=== PATIENT | male | born 1965 | race Caucasian/White ===

== ENCOUNTER 2019-04-15 07:08 | Day surgery (SDC) | payer OTHER, SELFPAY ==
[2019-04-15] MEDS: Lactated Ringers 1,000 ML 80 ML IV (07:55)
[2019-04-15] MEDS: ceFAZolin 2 GM/50 ML BAG IVPB (09:18)
[2019-04-15] MEDS: Bupivacaine LIPOSOME/PF 133 MG/10 ML VIAL IJ (09:25)
[2019-04-15] MEDS: Bupivacaine 0.25% Pres-Free 30 ML VIAL ×2 (09:25→10:45)
--- NOTE | 2019-04-15 10:53 | W.PM.OP ---
Date of service: 04/15/19 Time of Service: 10:53 Operative Note Operative Note DATE OF PROCEDURE: 04/15/19 PRE-OP DIAGNOSIS: lg left inguinal hernia undesired fertility POST-OP DIAGNOSIS: same PROCEDURE: left open hernia repair and vsectomy SURGEON: Margarette More STATE INSPECTOR: Lashon Howell ANESTHESIA: JENNIFER ESTIMATED BLOOD LOSS: 5 PATHOLOGY: none sent COMPLICATIONS: None Patient was transported to: same day Patient's condition: stable Procedure Description: .dict
--- NOTE | 2019-04-15 10:59 | DI.RAD_ITS ---
EXAM: XR PELVIS AP INDICATION: INCORRECT COUNT. COMPARISON: No exams were available for comparison TECHNIQUE: 2D digital imaging was performed. Portable supine FINDINGS: No radiopaque foreign bodies are seen. Surgical clips are seen in the left inguinal region. There i s no bowel dilatation. IMPRESSION: No radiopaque foreign body in the field of view.
[2019-04-15 11:08] VITALS: BP 106/83; PULSE 61; RESP 15; TEMP 36.7; O2SAT 96
[2019-04-15 11:13] VITALS: BP 115/78; PULSE 63; RESP 14; TEMP 36.7; O2SAT 97
[2019-04-15 11:18] VITALS: BP 120/81; PULSE 59; RESP 12; TEMP 36.7; O2SAT 96
--- NOTE | 2019-04-15 11:21 | W.PM.DSUDISC ---
Discharge Plan Disposition Patient Disposition: HOME Condition: Good Discharge Details Reason For Visit: left inguinal hernia repair w/ mesh and vasectomy Attending Provider: Margarette More Primary Care Provider: Unknown,Unknown Home Meds and New Rx's Prescriptions: New ibuprofen 600 mg tablet 600 mg PO Q6H PRN (Reason: pain) Qty: 90 RF: 2 tramadol 50 mg tablet 50 mg PO Q6H PRN (Reason: pain) Qty: 10 RF: 0 Continued Remicade 100 mg recon soln 1,000 mg IV Q6W RF: 0 Discharge Instructions Additional Instructions: miko More HERNIA REPAIR ? POSTOPERATIVE INSTRUCTIONS ? The MESH PLUG surgery for hernia repair allows the patient to return to normal activities at an early date. Patients who have this type of surgery can usually be expected to return to work within two weeks and have minimal amounts of discomfort. ? ACTIVITY: The day of surgery should be spent resting. However, you can be up for short periods of time, I.E., going to the bathroom or kitchen. Avoid lifting or straining. On the day following surgery, you can be up and about as desired. ? LIFTING: Restrict your lifting to no more than five (5) pounds for the first week following surgery. ? DIET: There are no dietary restrictions following surgery. However, you may want to start with small amounts of liquids to avoid nausea the day of surgery. ? INCISION CARE: A dressing covers your incision. After 24 hours you may shower and apply a clean dressing over the strips of tape. The dressing may be replaced as necessary. An ice bag may be applied to the incision for 72 hours following surgery. ? SIGNS OF INFECTION: It is not unusual to have some black and blue discoloration of the skin around the incision. It will slowly disappear. If you have any increased redness, drainage, fever (above 100 degrees), please contact your doctor for an examination. ? DISCOMFORT: You may expect to have some mild discomfort at the incision sight. If severe pain develops you should contact your doctor for further instructions. ? URINATION: Patients who have surgery occasionally have problems urinating. If you experience problems and are not able to urinate within 6 hours following your surgery, please call your doctor immediately or go to your nearest Emergency Room for evaluation. ? DRIVING: NO driving for five (5) days after surgery ? MEDICATIONS: You have been given a prescription for pain. If you are taking pain medication, follow the instructions on the label and do not drive. Some patients have conditions that require antibiotics, please follow the instructions on the label and take all of the antibiotics. Pain medications can make you very constipated. Take a dose of MOM the day after your surgery. Make sure you are moving your bowels daily. If not, take Miralax, milk of magnesia or magnesium citrate. ? REPORT: Unusual swelling, severe pain, unresolved nausea, signs of infection, or difficulty in urination to your surgeon. Follow up in clinic with Dr. More in 1-2 weeks. Please call for appointment: [phone] Activity:: no lifting over 5#'s or strenuousactivity x 2 wks. no driving x 5 days Remove Dressings/Wound Care:: 24 hours Shower/Bathe:: 24 hours Diet:: Normal Diet Discharge Orders Discharge Orders: Discharge Order (Routine); Ordered 04/15/19 Ordered By: Margarette More DS: Diagnosis Discharge Diagnosis (1) Left inguinal hernia: Status: Acute (2) S/P vasectomy: Status: Acute
[2019-04-15 11:33] VITALS: BP 129/89; PULSE 59; RESP 12; TEMP 36.7; O2SAT 97
--- NOTE | 2019-04-15 12:24 | ROE_ITS ---
DATE OF PROCEDURE: April 15, 2019 PREOPERATIVE DIAGNOSIS: Left inguinal hernia and undesired fertility. POSTOPERATIVE DIAGNOSIS: Same. SURGEON: Margarette More D.O. ANESTHESIA: General. ESTIMATED BLOOD LOSS: 10 cc's CONDITION: The patient tolerated the procedure well without complication. INDICATIONS FOR PROCEDURE: Mr. Medeiros is a 54-year-old male with a large left inguinal hernia and undesired fertility and is here today for a left inguinal hernia repair with mesh and vasectomy with Dr. Nguyen. Informed consent was obtained explaining risks and benefits of the procedure, including but not limited to bleeding, infection, pneumonia, blood clots, possible damage to bowel, bladder or blood vessels, chronic pain, chronic numbness, hematomas, sperm granulomas and recannulization. Also the patient understands that he is not infertile until we get a semen specimen. The patient was seen and an exam was performed. He was marked in preop. PROCEDURE: The patient was brought to the operative suite and placed in the supine position. Anesthesia is administered per the Department of Anesthesia. TAP block was done per Anesthesia. The patient was prepped and draped in usual sterile fashion using a ChloraPrep and Betadine scrub solution. He did receive preop antibiotics. Time-out was performed. We are doing the left inguinal hernia and left vasectomy. The external ring was isolated and 0.25% Marcaine is used for a local field block. A #15 blade is used to make an incision. Electrocautery was used to provide hemostasis and dissect down to the fascia. The external oblique is obliterated. There is a large lipoma and this is excised using electrocautery. The cord structures are encountered and these are elevated. There is a very large direct sac that is on the cord. This is all teased down off the cord with a combination of blunt dissection and energy. Because of the size of the sac it is opened up; it does contain omentum and colon. The omentum is adhered to the sac and this is taken down. There is again a significant amount of redundant omentum and this is excised using a LigaSure. The colon is pink and healthy and this is returned to the abdominal cavity. A high ligation is done on the sac and a portion of the sac is ligated as well. The sac remnant is then returned to the abdominal cavity. A large plug is placed through the external ring. This is then over-sewn using #2-0 Vicryl. The vasectomy is tended to next. The vas is then dissected off the cord blood vessels and isolated and clips are placed proximally and distall. A half-inch segment of vas is removed. The ends are cauterized. The LigaSure is also used to cauterize the vas as well. There is no bleeding noted. The patch is then sewn into the pubic tubercle and around the cord and buried underneath what was left of the external oblique. Superiorly or medially there was some external oblique left to sew the patch to. Inferiorly and laterally there was not any really good fascia left. The wound is then irrigated. The testicle is in good position. There is no tugging/tension on the cord structures. There is no bleeding or hematoma. The redundant tissue is then closed over the hernia repair using a #2-0 Vicryl and the deep subcutaneous is closed with #2-0 Vicryl. The skin is closed with #4-0 Monocryl in a running subcuticular fashion and skin glue is applied. The right side vasectomy is then carried out by Dr. Nguyen. Please see the separate operative note for this procedure. Sterile compression dressings are applied. The patient tolerated the procedure well without complication and transferred to the recovery room in stable condition.
[2019-04-15 12:38] VITALS: BP 130/86; PULSE 61; RESP 18; TEMP 36.1; O2SAT 97
--- NOTE | 2019-04-15 14:36 | ROE_ITS ---
DATE OF PROCEDURE: April 15, 2019 PREOPERATIVE DIAGNOSIS: Elective sterilization. POSTOPERATIVE DIAGNOSIS: Same. PROCEDURE: Vasectomy. SURGEON: Marquise Nguyen M.D. ANESTHESIA: General. COMPLICATIONS: None. ESTIMATED BLOOD LOSS: Minimal. HISTORY: This is a 54-year-old gentleman who has a symptomatic left inguinal hernia. He is due for an inguinal hernia repair. He is asking if a vasectomy could be performed at the same time. We counseled the patient that vasectomy should be considered permanent. He and his partner are sure that they do not want additional pregnancies. Both he and his partner are agreeable to the vasectomy . PROCEDURE: The patient was seen in the operating room once he was already under general anesthesia. The left inguinal hernia repair had been performed by Dr. More. During that repair a segment of the left vas deferens was excised and each cut end was cauterized. We then addressed the right vas deferens. The vas was isolated up against the scrotal skin. The ski n was opened using a scalpel-free technique. The vas was then grasped using a ring forceps and the v as was dissected free using sharp and blunt dissection. A 2 cm section of vas was excised. Each cut end was cauterized. The adventitia surrounding the prox imal segment of vas was closed over top using a [id number] #4-0 chromic suture. Marcaine was then instilled into the incision. The skin was closed with Dermabond. The patient tolerated the procedure well with no complications. Neither of the vas specimens were se nt to pathology. This is the current recommendation of the [employer]. The pat ient is cautioned that he is not considered sterile until he brings a semen sample into our office in approximately twelve weeks. Once the absence of sperm is identified we will consider the patient [facility].
== END 2019-04-15 13:52 | disposition home or self-care (01) ==
PROVIDERS: Urology; Visit Provider Surgery
PROC: (CPT 49505; principal; 2019-04-15 09:00)
PROC: (CPT 55250; 2019-04-15 09:00)
DX: K40.90 Unilateral inguinal hernia, without obstruction or gangrene, not specified as recurrent (principal); Z30.2 Encounter for sterilization; G89.18 Other acute postprocedural pain
CPT/HCPCS: 49505; 55250; 76942; 72170; C1781; J0690; J1100; J1885; J2250; J2405; J2704